=== PATIENT | female | born 1985 | race Two or more races ===

== ENCOUNTER 2020-11-14 14:45 | Inpatient (IN) | payer OTHER ==
[~2020-11-14] VITALS: Ht 160 cm; Wt 82.6 kg
[2020-11-24] MEDS ORDERED: PRENATAL TABLE1 EAC1 PO (08:39)
== END 2020-11-26 13:07 | disposition home or self-care (01) | DRG 807 ==
LOC: SURG-SUITE 11-24 07:42 → LDR 11-24 07:42 → SURG-SUITE 11-24 11:06 → LDR 11-29 14:45
PROVIDERS: ADMIT Obstetrics & Gynecology Maternal & Fetal Medicine; ATTEND Obstetrics & Gynecology Maternal & Fetal Medicine
PROC: 10E0XZZ Delivery of Products of Conception, External Approach (ICD-10-PCS; principal; 2020-11-24)
PROC: 0KQM0ZZ Repair Perineum Muscle, Open Approach (ICD-10-PCS; 2020-11-24)
PROC: 10907ZC Drainage of Amniotic Fluid, Therapeutic from Products of Conception, Via Natural or Artificial Opening (ICD-10-PCS; 2020-11-24)
PROC: 4A1HXFZ Monitoring of Products of Conception, Cardiac Rhythm, External Approach (ICD-10-PCS; 2020-11-24)
DX: O99.02 Anemia complicating childbirth (principal); Z37.0 Single live birth; O70.1 Second degree perineal laceration during delivery; Z3A.39 39 weeks gestation of pregnancy; D64.9 Anemia, unspecified

== ENCOUNTER 2022-07-03 19:06 | Emergency (ER) | payer OTHER ==
[~2022-07-03] VITALS: Ht 160 cm; Wt 65.8 kg
[~2022-07-03 19:06] MED LIST: PRENATAL TABLE1 EAC1 PO
== END 2022-07-03 21:27 | disposition home or self-care (01) ==
LOC: ER 19:06
DX: J10.1 Influenza due to other identified influenza virus with other respiratory manifestations (principal); Z20.822 Contact with and (suspected) exposure to COVID-19